=== PATIENT | female | born 1970 | race African-American/Black ===

== ENCOUNTER 2018-02-25 09:49 | Emergency (ER) | payer SELFPAY ==
--- NOTE | 2018-02-25 10:21 | ER Document Report ---
ED General - General Chief Complaint: Pelvic Problem Stated Complaint: URINARY ISSUE Time Seen by Provider: 02/25/18 10:09 Mode of Arrival: Ambulatory Information source: Patient Notes: 47-year-old female presents the emergency department with complaints of increased urgency, increased frequency, difficulty urinating. She also states that she feels like her bladder might be prolapsing. Patient states that symptoms have been present for the last year. She states that initially she felt a small bulge dropping out of her vagina. This is been increasing in size. Patient states that now as soon as she stands up she feels a large buldge in her vagina. If she crosses her feet when she stands it will keep the bladder up longer. Patient says that when it drops she's unable to urinate. She denies vaginal bleeding or abnormal vaginal discharge. Intermittent suprapubic abdominal pain. Patient has followed up with a urologist, Dr. Ardon. He checked her urine and said that he would refer her to Dr. Valentin who specializes in bladder prolapse. Patient has an appointment at the end of the month. I have greeted and performed a rapid initial assessment of this patient. A comprehensive ED assessment and evaluation of the patient, analysis of test results and completion of the medical decision making process will be conducted by additional ED providers. PHYSICAL EXAMINATION: GENERAL: Well-appearing, well-nourished and in no acute distress. HEAD: Atraumatic, normocephalic. EYES: Pupils equal round extraocular movements intact, conjunctiva are normal. ENT: Nares patent NECK: Normal range of motion LUNGS: No respiratory distress Musculoskeletal: Normal range of motion NEUROLOGICAL: Normal speech, normal gait. PSYCH: Normal mood, normal affect. SKIN: Warm, Dry, normal turgor, no rashes or lesions noted. TRAVEL OUTSIDE OF THE [place] IN LAST 30 DAYS: No - Related Data Allergies/Adverse Reactions: No Known Allergies Allergy (Verified 02/25/18 10:18) Past Medical History - Social History Smoking Status: Never Smoker Family History: Reviewed & Not Pertinent Physical Exam - Vital signs Vitals: Temp Pulse Resp BP Pulse Ox 97.6 F 64 18 124/70 100 02/25/18 10:01 02/25/18 10:01 02/25/18 10:01 02/25/18 10:01 02/25/18 10:01 Course - Vital Signs Vital signs: Temp Pulse Resp BP Pulse Ox 97.6 F 64 18 124/70 100 02/25/18 10:01 02/25/18 10:01 02/25/18 10:01 02/25/18 10:01 02/25/18 10:01 Discharge - Discharge Referrals: LOCALMD,NO [Primary Care Provider] - Follow up as needed
[2018-02-25 10:41] LABS: APPEARANCE,URINE CLEAR; BILIRUBIN,URINE NEGATIVE (NEGATIVE); COLOR,URINE STRAW; GLUCOSE, URINE NEGATIVE (NEGATIVE); KETONES,URINE NEGATIVE (NEGATIVE); LEUKOCYTE ESTERASE,URINE NEGATIVE (NEGATIVE); NITRITE,URINE NEGATIVE (NEGATIVE); PROTEIN,URINE NEGATIVE (NEGATIVE); URINE SPECIFIC GRAVITY 1.008; UROBILINOGEN,URINE NEGATIVE mg/dL (<2.0)
--- NOTE | 2018-02-25 10:41 | ER Document Report ---
ED General - General Chief Complaint: Pelvic Problem Stated Complaint: URINARY ISSUE Time Seen by Provider: 02/25/18 10:09 Mode of Arrival: Ambulatory Information source: Patient Notes: This is a 47-year-old female who has been having symptoms of prolapsed bladder on and off for the past year. Patient states she was having difficulty urinating in the setting of prolapse and came into the emergency room. The patient was recently evaluated by urologist and were burred to Dr. Angel Clancy of urology. Currently, she denies any nausea, vomiting, abdominal pain. TRAVEL OUTSIDE OF THE [place] IN LAST 30 DAYS: No - HPI Onset: Other - Symptoms over the last year Onset/Duration: Gradual Quality of pain: No pain Severity: None Pain Level: Denies Associated symptoms: None Exacerbated by: Denies Relieved by: Denies Similar symptoms previously: Yes Recently seen / treated by doctor: Yes - Related Data Allergies/Adverse Reactions: No Known Allergies Allergy (Verified 02/25/18 10:18) Past Medical History - General Information source: Patient - Social History Smoking Status: Never Smoker Cigarette use (# per day): No Chew tobacco use (# tins/day): No Frequency of alcohol use: None Drug Abuse: None Lives with: Family Family History: Reviewed & Not Pertinent Patient has suicidal ideation: No Patient has homicidal ideation: No - Past Medical History Cardiac Medical History: Reports: Hx Hypertension Renal/ Medical History: Denies: Hx Peritoneal Dialysis Surgical Hx: Negative Review of Systems - Review of Systems Constitutional: denies: Chills, Fever EENT: No symptoms reported Cardiovascular: No symptoms reported Respiratory: No symptoms reported Gastrointestinal: No symptoms reported Genitourinary: No symptoms reported Female Genitourinary: See HPI Musculoskeletal: No symptoms reported Skin: No symptoms reported Hematologic/Lymphatic: No symptoms reported Neurological/Psychological: No symptoms reported Physical Exam - Vital signs Vitals: Temp Pulse Resp BP Pulse Ox 97.6 F 64 18 124/70 100 02/25/18 10:01 02/25/18 10:01 02/25/18 10:01 02/25/18 10:01 02/25/18 10:01 Notes: Physical exam: GENERAL: The patient is alert and oriented x3, no acute distress HEAD: Atraumatic, normocephalic. EYES: Pupils equal round and reactive to light, extraocular movements intact, sclera anicteric, conjunctiva are normal. ENT: TMs normal, nares patent, oropharynx clear without exudates. Moist mucous membranes. NECK: Normal range of motion, supple without obvious mass or JVD. LUNGS: Breath sounds clear to auscultation bilaterally and equal. No wheezes rales or rhonchi. HEART: Regular rate and rhythm without murmurs, rubs or gallops. ABDOMEN: Soft, normoactive bowel sounds. No tenderness to palpation. No guarding, no rebound. No masses appreciated. Vaginal: External genitalia normal. No obvious prolapse. Cervix normal, no masses. No abnormal discharge. EXTREMITIES: Normal range of motion, no pitting or edema. No clubbing or cyanosis. NEUROLOGICAL: Cranial nerves II through XII grossly intact. Normal speech, moving all extremities. PSYCH: Normal mood, normal affect. SKIN: Warm, Dry, normal turgor, no rashes or lesions noted. Patient did not had any obvious prolapse on my exam. We did have her walk the halls and go to the bathroom and when she returned, repeat pelvic exam showed prolapsing cervix which was easily retracted back and to the pelvis. Tissues were normal and pink. Course - Re-evaluation Re-evalutation: 02/25/18 11:41 Given that the patient has an appointment with Dr. Angel Clancy on March 13, I did call and speak to him to make sure that this is within his scope of practice. He stated that often times he will refer the patient to a aquaculture program director if it appears that like warts prolapsing is all uterus. He is willing to see the patient on the . I have opted to call the aquaculture program director here. I will give her the phone number for the [facility] here and I have advised her that if the appointment [facility] is after March 13, to continue with the appointment with Dr. Clancy. If it turns out that the patient will be taken care of by the aquaculture program director, she could always cancel the appointment at that time. - Vital Signs Vital signs: Temp Pulse Resp BP Pulse Ox 97.9 F 56 L 14 110/67 100 02/25/18 12:31 02/25/18 12:31 02/25/18 12:31 02/25/18 12:31 02/25/18 12:31 Discharge - Discharge Clinical Impression: Prolapsed uterus Condition: Stable Disposition: HOME, SELF-CARE Additional Instructions: As we discussed, your urine test look normal. On exam, he did appear to be the cervix (uterus) that was prolapsing. Often times, the aquaculture program director will be the ones taking care of this. As we discussed, we will give you the number of the [facility] who is the gynecology service. It may be that the appointment is after March 13 in which case I would continue to see Dr. Angel Clancy. If the appointment with the aquaculture program director is before March 13, see what they recommend before canceling that appointment with Dr. Angel Clancy. Return to the emergency room for any pain, prolapse that does not seem to go back or any concerns or getting worse. Forms: Return to Work Referrals: JULIUS HARTMAN, DO [ACTIVE STAFF] - Follow up as needed (This is the number the [facility] (the aquaculture program director).)
[2018-02-25 11:51] LABS: T.VAGINALIS (WET MOUNT) NO TRICHOMONAS SEEN; YEAST (WET MOUNT) NO YEAST SEEN
[2018-02-25 11:52] LABS: EPITHELIALS (WET MOUNT) 3+ EPITHELIALS SEEN; WBCS (WET MOUNT) 1+ WBCS SEEN
[2018-02-25 12:32] VITALS: BP 110/67
[2018-02-25 13:22] LABS: CHLAM PCR NOT DETECTED (NOT DETECT); GON PCR NOT DETECTED (NOT DETECT)
== END 2018-02-25 12:31 | disposition home or self-care (01) ==
LOC: ER 09:49
DX: N81.4 Uterovaginal prolapse, unspecified (principal); I10 Essential (primary) hypertension
CPT/HCPCS: 81001; 87210; 87491; 87591; 99284

== ENCOUNTER 2018-05-29 06:50 | Day surgery (SDC) | payer BC ==
[2018-05-20 13:20] LABS: HEMATOCRIT 38.7 % (36.0-47.0); MEAN CORPUSCULAR HEMOGLOBIN 27.8 pg (27.0-33.4); MEAN CORPUSCULAR HGB CONC 33.5 g/dL (32.0-36.0); MEAN CORPUSCULAR VOLUME 83 fl (80-97); PLATELET COUNT 221 10^3/uL (150-450); RED BLOOD COUNT 4.67 10^6/uL (3.72-5.28); RED CELL DISTRIBUTION WIDTH 14.7 % (11.5-14.0); WHITE BLOOD COUNT 5.1 10^3/uL (4.0-10.5)
[2018-05-20 13:21] LABS: APPEARANCE,URINE CLEAR; BILIRUBIN,URINE NEGATIVE (NEGATIVE); COLOR,URINE STRAW; GLUCOSE, URINE NEGATIVE (NEGATIVE); KETONES,URINE NEGATIVE (NEGATIVE); LEUKOCYTE ESTERASE,URINE NEGATIVE (NEGATIVE); NITRITE,URINE NEGATIVE (NEGATIVE); PROTEIN,URINE NEGATIVE (NEGATIVE); URINE SPECIFIC GRAVITY 1.005; UROBILINOGEN,URINE NEGATIVE mg/dL (<2.0)
[2018-05-20 13:36] LABS: ALANINE AMINOTRANSFERASE 20 U/L (9-52); ALBUMIN 4.8 g/dL (3.5-5.0); ALKALINE PHOSPHATASE 53 U/L (38-126); ANION GAP 12 (5-19); ASPARTATE AMINO TRANSFERASE 23 U/L (14-36); BILIRUBIN,DIRECT 0.3 mg/dL (0.0-0.4); BILIRUBIN,TOTAL 1.2 mg/dL (0.2-1.3); BLOOD UREA NITROGEN 12 mg/dL (7-20); CALCIUM 9.9 mg/dL (8.4-10.2); CARBON DIOXIDE 24 mmol/L (22-30); CHLORIDE 104 mmol/L (98-107); GLUCOSE 92 mg/dL (75-110); POTASSIUM 4.1 mmol/L (3.6-5.0); SODIUM 140.3 mmol/L (137-145); TOTAL PROTEIN 7.9 g/dL (6.3-8.2)
[~2018-05-29 06:50] MED LIST: CEFAZOLIN SODIUM 2 GM in DEXTROSE 5%-WATER 100 ML IV PRN; LIDOCAINE 0.5% INJ-PF (5 MG/ML) 50 ML SDV SUBCUT PRN
[2018-05-29] MEDS ORDERED: METHYLENE BLUE 50 MG/10 ML AMPULE ONE (07:19)
[2018-05-29] MEDS ORDERED: VASOPRESSIN INJ 20 UNIT/1 ML VIAL ONE (08:51)
[2018-05-29] MEDS ORDERED: FENTANYL CITRATE INJ/PF 250 MCG/5 ML AMPULE ONE (09:00)
[2018-05-29] MEDS ORDERED: LIDOCAINE 2% INJ-PF (20 MG/ML) 10 ML AMPUL ONE (09:00)
[2018-05-29] MEDS ORDERED: PROMETHAZINE HCL INJ 25 MG/1 ML VIAL ONE (09:00)
[2018-05-29] MEDS ORDERED: ONDANSETRON HCL INJ/PF 4 MG/2 ML SDV ONE (09:01)
[2018-05-29] MEDS ORDERED: MIDAZOLAM 2 MG/2 ML INJ ONE (09:01)
[2018-05-29] MEDS ORDERED: HYDROMORPHONE HCL INJ/PF 2 MG/ML AMPULE ONE (09:01)
[2018-05-29] MEDS ORDERED: ACETAMINOPHEN 1,000 MG/100 ML RTUPB IV ONE (09:01)
[2018-05-29] MEDS ORDERED: PROPOFOL INJ 200 MG/20 ML VIAL IV ONE (09:01)
[2018-05-29] MEDS ORDERED: MORPHINE SULFATE 10 MG/ML INJ IV PRN (09:51)
[2018-05-29] MEDS ORDERED: MEPERIDINE HCL/PF INJ 25 MG/1 ML DISP.SYRIN IV PRN (09:51)
[2018-05-29] MEDS ORDERED: PROMETHAZINE HCL INJ 25 MG/1 ML VIAL IV PRN ×3 (09:51→12:06)
[2018-05-29] MEDS ORDERED: DIPHENHYDRAMINE HCL 50 MG/ML VIAL IV PRN (09:51)
[2018-05-29] MEDS ORDERED: FENTANYL CITRATE INJ/PF 100 MCG/2 ML AMPUL IV PRN ×3 (09:51)
[2018-05-29] MEDS ORDERED: NEOSTIGMINE METHYLSULFATE 10 MG/10 ML VIAL ONE (11:37)
[2018-05-29] MEDS ORDERED: DEXAMETHASONE SOD PHOSPHATE INJ 4 MG/1 ML VIAL ONE (11:37)
[2018-05-29] MEDS ORDERED: SUCCINYLCHOLINE CHLORIDE INJ 200 MG/10 ML VIAL ONE (11:37)
[2018-05-29] MEDS ORDERED: ROCURONIUM BROMIDE INJ 50 MG/5 ML VIAL IV ONE (11:37)
[2018-05-29] MEDS ORDERED: KETOROLAC TROMETHAMINE 60 MG/2 ML SDV ONE (11:37)
[2018-05-29] MEDS ORDERED: GLYCOPYRROLATE 1 MG/5 ML SYRINGE ONE (11:37)
[2018-05-29] MEDS ORDERED: SIMETHICONE 80 MG TAB.CHEW PO PRN (12:06)
[2018-05-29] MEDS ORDERED: ACETAMINOPHEN 325 MG TABLET PO PRN (12:06)
[2018-05-29] MEDS ORDERED: OXYCODONE-ACETAMINOPHEN 5-325 MG TABLET PO PRN ×2 (12:06)
[2018-05-29] MEDS ORDERED: HYDROMORPHONE HCL INJ/PF 2 MG/ML AMPULE IV PRN (12:06)
--- NOTE | 2018-05-29 12:23 | Operative Report ---
Operative Report DATE OF SURGERY: 05/29/18 PREOPERATIVE DIAGNOSIS: Uterine prolapse, grade 3 POSTOPERATIVE DIAGNOSIS: Same plus vaginal prolapse OPERATION: 1. Vaginal hysterectomy with bilateral salpingectomy. 2. Posterior colporrhaphy. 3. Sacral spinous ligament fixation. 4. Cystoscopy SURGEON: JULIUS SRIVASTAVA STRATEGIC ACCOUNT MANAGER: ROSAMARIA LU ANESTHESIA: GA TISSUE REMOVED OR ALTERED: Uterus, bilateral tubes and excess posterior vaginal mucosa COMPLICATIONS: None ESTIMATED BLOOD LOSS: 300 mL INTRAOPERATIVE FINDINGS: Uterus measures approximately 6 x 12 cm; 1 x 1 cm fibroid in the right fundal region; grade 3 uterine prolapse; vaginal prolapse PROCEDURE: Patient was taken to the operating room where general anesthesia was understood without difficulty. The patient was then prepared and draped in a normal sterile fashion in dorsal lithotomy position. Gregory catheter was then placed in the patient's bladder. A weighted speculum was then placed in the patient's vagina and it was immediately noted that there was grade 3 uterine prolapse. Anterior lip of the cervix was grasped with a single-tooth tenaculum. Next, the cervix was circumferentially incised with a Bovie and the bladder was dissected off the pubovesical cervical fascia anteriorly with an open Ray-Batool and the Metzenbaum scissors. The posterior cul-de-sac was then entered sharply without difficulty. At this point a Angela clamp was placed over the uterosacral ligaments on either side. They were then transected and suture ligated with 0 Vicryl. Hemostasis was noted. The cardinal ligaments were then clamped on both sides, transected and suture ligated in similar fashion. Attempt was made to enter anteriorly but the plane was not located just yet. The uterine arteries and the broad ligament were then serially clamped with Angela clamps, transected and suture-ligated on both sides. Excellent hemostasis was visualized. The anterior cul-de-sac was then entered sharply. A right angle was then placed into the space. Both cornua were then clamped with Angela clamps, transected and uterus was delivered. These pedicles were then suture-ligated with excellent hemostasis. The left tube and ovary were then located. The left tube was then grasped with a Durham and a Angela was placed around the tube, which was transected and suture-ligated. Hemostasis was noted. The same was done on the left side and hemostasis was also noted. The vaginal cuff angles were then closed in a [id number] stitches of 0 Vicryl and transfixed to the ipsilateral cardinal and uterosacral ligaments. The remainder of the vaginal cuff was then closed with 0 Vicryl in a running, locked fashion. Hemostasis was noted. Attention was then turned to the posterior colporrhaphy. Incision was made in the perineal body with Metzenbaum scissors. The tissue was then undermined in o rder to make a vertical incision in the posterior vaginal mucosa. The edges were then held with Allis clamps. The perirectal fascia was dissected off the posterior vaginal mucosa. The apex of the rectocele was then held with an Allis clamp. A finger was placed in the rectovaginal space, which was used to fix the ischial spine in preparation for the sacral spinous ligament fixation. The spine was then palpated directly and is on approximately 2 cm medial to the spine was selected for insertion of the Anchorsure. I inserted the device and placed the anchor. The polypropylene suture was then held with a hemostat for later use. Attention was then returned to the posterior repair. 2-0 Vicryl was used in interrupted fashion to pass to the margin of the levator angle from the apex down to the posterior fourchette. Sutures were held until the fourchette is reached. The Anchorsure was then loosely attached to the vaginal mucosa at the apex. Each interrupted suture was then tied. The Anchorsure was then cinched down to suspend the vaginal cuff. The excess vaginal mucosa was then trimmed. The vaginal mucosa was then closed in a running, locked fashion with 2-0 Vicryl. Hemostasis was noted. Perineal body was also repaired. Patient was then given methylene blue during the posterior colporrhaphy in preparation for the cystoscopy. The Gregory catheter was then removed and the cystoscope was then introduced into the urethra and bladder. After approximately 3 minutes, the methylene blue was seen extruding from the right and left utereral orifices. The cystoscope was then removed and Gregory catheter was replaced. Patient tolerated procedure well. Sponge, lap, needle and instrument counts are correct x2. Patient was given 2 g Ancef prior to the start of procedure. Leoncio khoi was taken to the recovery room in stable condition. Dr. Lu's assistance was essential to perform these procedures in a timely proficient manner.
[2018-05-29] MEDS: KETOROLAC TROMETHAMINE INJ/PF 30 MG/1 ML SDV IV SCH ×2 (13:44→21:17)
[2018-05-29] MEDS: DOCUSATE SODIUM 100 MG CAPSULE PO SCH (17:30)
[2018-05-29] MEDS: LACTATED RINGERS 1000 ML IV PRN ×2 (17:52→21:21)
[2018-05-30] MEDS: RINGERS SOLUTION,LACTATED 1,000 ML IV PRN ×2 (06:05→06:41)
[2018-05-30] MEDS: KETOROLAC TROMETHAMINE INJ/PF 30 MG/1 ML SDV IV SCH (06:41)
[2018-05-30 06:45] LABS: HEMATOCRIT 33.7 % (36.0-47.0); HEMOGLOBIN 11.1 g/dL (12.0-15.5); MEAN CORPUSCULAR HEMOGLOBIN 27.7 pg (27.0-33.4); MEAN CORPUSCULAR HGB CONC 33.1 g/dL (32.0-36.0); MEAN CORPUSCULAR VOLUME 84 fl (80-97); PLATELET COUNT 147 10^3/uL (150-450); RED BLOOD COUNT 4.02 10^6/uL (3.72-5.28); RED CELL DISTRIBUTION WIDTH 14.5 % (11.5-14.0); WHITE BLOOD COUNT 10.5 10^3/uL (4.0-10.5)
[2018-05-30] MEDS: DOCUSATE SODIUM 100 MG CAPSULE PO SCH (09:34)
--- NOTE | 2018-05-30 10:35 | PDOC DISCHARGE SUMMARY ---
General - Admit/Disc Date/PCP Admission Date/Primary Care Provider: May 29, 2017 Discharge Date: 05/30/18 - Discharge Diagnosis (1) Uterine prolapse Is this a current diagnosis for this admission?: Yes (2) Vaginal vault prolapse Is this a current diagnosis for this admission?: Yes (3) Rectocele Is this a current diagnosis for this admission?: Yes - Additional Information Discharge Diet: As Tolerated, Regular Discharge Activity: No Lifting Over 10 Pounds, Pelvic Rest, Slowly Increase Activity Prescriptions: Docusate Sodium [Colace 100 mg Capsule] 100 mg PO BID #30 capsule Ibuprofen [Motrin 800 mg Tablet] 800 mg PO Q8H PRN #40 tablet PRN Reason: Oxycodone HCl/Acetaminophen [Percocet 5-325 mg Tablet] 1 tab PO Q4HP PRN #30 tablet PRN Reason: Home Medications: Olmesartan/Hydrochlorothiazide [Olmesartan-Hctz 20-12.5 mg Tab] 1 each PO DAILY 05/17/18 Docusate Sodium [Colace 100 mg Capsule] 100 mg PO BID #30 capsule 05/30/18 Ibuprofen [Motrin 800 mg Tablet] 800 mg PO Q8H PRN #40 tablet 05/30/18 Oxycodone HCl/Acetaminophen [Percocet 5-325 mg Tablet] 1 tab PO Q4HP PRN #30 tablet 05/30/18 History of Present Illness Patient complains of: "My uterus is falling out" History of Present Illness: JUAN LUIS MENCHACA is a 47 year old presented to the office complaining of her uterus falling out. She stated that she has regular periods with normal flow. 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 Patient was scheduled for vaginal hysterectomy. The plan was to retain her ovaries secondary to her young age. Hospital Course Hospital Course: Hospital course was essentially uneventful and by postop day #1, the patient was ambulating voiding without difficulty.. Patient denies chest pain, shortness of breath, fever/chills or nausea/vomiting. Her immediate postop hemoglobin was 11, down from an admission hemoglobin of 13. Her oral medication is working well for her. Physical Exam - Physical Exam Vital Signs: Temp Pulse Resp BP Pulse Ox 99.3 F 55 L 16 108/64 100 05/30/18 07:57 05/30/18 07:57 05/30/18 07:57 05/30/18 07:57 05/30/18 07:57 Intake & Output 05/29/18 05/30/18 05/31/18 06:59 06:59 06:59 Intake Total 3410 Output Total 2200 Balance 1210 Weight 106.59 kg General appearance: PRESENT: no acute distress Respiratory exam: PRESENT: clear to auscultation donny Cardiovascular exam: PRESENT: RRR GI/Abdominal exam: PRESENT: normal bowel sounds, soft Extremities exam: ABSENT: calf tenderness, clubbing, full ROM, joint swelling, pedal edema, tenderness, +1 edema, +2 edema, other - Gynecological Exam Vagina: discharge - Scant serosanguineous discharge Result Laboratory Results: 05/30/18 06:38 05/29/18 07:38 05/30/18 06:38 WBC 10.5 RBC 4.02 Hgb 11.1 L Hct 33.7 L MCV 84 MCH 27.7 MCHC 33.1 RDW 14.5 H Plt Count 147 L Plan Discharge Plan: Plan: 1. Discharge home today 2. Follow-up in the office in 2 weeks for postoperative examination or sooner if needed 3. Rx for a stool softener, Percocet and ibuprofen given Time Spent: Less than 30 Minutes
[2018-05-30] MEDS ORDERED: IBUPROFEN 800 MG TABLET PO SCH (12:00)
[2018-05-30 12:37] VITALS: BP 122/77
== END 2018-05-30 13:18 | disposition home or self-care (01) ==
LOC: OROUT 06:50 → 2S 13:21 → OROUT 05-30 13:18
PROVIDERS: ATTEND Obstetrics & Gynecology
DX: N81.3 Complete uterovaginal prolapse (principal); N81.6 Rectocele; R23.4 Changes in skin texture; N80.0 Endometriosis of uterus; D25.9 Leiomyoma of uterus, unspecified; N83.8 Other noninflammatory disorders of ovary, fallopian tube and broad ligament; I10 Essential (primary) hypertension; Z79.899 Other long term (current) drug therapy; Z00.00 Encounter for general adult medical examination without abnormal findings
CPT/HCPCS: 86900; 86901; 36415 ×3; 86850; 82962; 84132; 85027 ×2; 81025; 80053; 81001; 88307 ×2; 94799; 57250; 58262; J2250; J0690; J3490 ×4; J1100; J1885 ×3; J3010; J2550; J0330; J2405; J7120 ×2; J2704; J0131; Q9968; 944; J1170

== ENCOUNTER 2020-03-07 10:34 | Emergency (ER) | payer BC ==
[2020-03-07] MEDS ORDERED: HYDROCODONE/ACETAMINOPHEN 5-325 MG TABLET PO ONE (11:45)
--- NOTE | 2020-03-07 11:46 | ER Document Report ---
ED Medical Screen (RME) - General Chief Complaint: Leg Pain Stated Complaint: LEFT LEG PAIN Time Seen by Provider: 03/07/20 11:41 Notes: Patient presents complaining of low back pain for the past 7 months. Patient denies any injury. Patient also complains of recent muscle cramps to bilateral lower extremities that wake her up at night. Patient denies any recent injury. Patient denies any fever. Patient denies any urinary retention or incontinence. I have greeted and performed a rapid initial assessment of this patient. A comprehensive ED assessment and evaluation of the patient, analysis of test results and completion of the medical decision making process will be conducted by additional ED providers. TRAVEL OUTSIDE OF THE [place] IN LAST 30 DAYS: No - Related Data Allergies/Adverse Reactions: lisinopril Adverse Reaction (Verified 03/07/20 11:39) Past Medical History - Social History Chew tobacco use (# tins/day): No Frequency of alcohol use: None Drug Abuse: None - Past Medical History Cardiac Medical History: Reports: Hx Hypertension Denies: Hx Coronary Artery Disease, Hx Heart Attack Pulmonary Medical History: Denies: Hx Asthma, Hx Bronchitis, Hx COPD, Hx Pneumonia Neurological Medical History: Denies: Hx Cerebrovascular Accident, Hx Seizures Renal/ Medical History: Denies: Hx Peritoneal Dialysis Musculoskeltal Medical History: Denies Hx Arthritis - Immunizations Hx Diphtheria, Pertussis, Tetanus Vaccination: Yes Physical Exam - Vital signs Vitals: Temp Pulse Resp BP Pulse Ox 98.2 F 75 16 121/68 100 03/07/20 10:42 03/07/20 10:42 03/07/20 10:42 03/07/20 10:42 03/07/20 10:42 - Back Back: Vertebra tenderness - Lumbar tenderness Course - Vital Signs Vital signs: Temp Pulse Resp BP Pulse Ox 98.2 F 75 16 121/68 100 03/07/20 10:42 03/07/20 10:42 03/07/20 10:42 03/07/20 10:42 03/07/20 10:42
[2020-03-07 12:12] LABS: ABSOLUTE BASOPHILS # (AUTO) 0.1 10^3/uL (0.0-0.2); ABSOLUTE EOSINOPHILS # (AUTO) 0.2 10^3/uL (0.0-0.6); ABSOLUTE LYMPHOCYTES (AUTO) 2.1 10^3/uL (0.5-4.7); ABSOLUTE MONOCYTES (AUTO) 0.5 10^3/uL (0.1-1.4); ABSOLUTE NEUT (AUTO) 3.4 10^3/uL (1.7-8.2); BASOPHILS % (AUTO) 0.9 % (0-2); EOSINOPHILS % (AUTO) 3.6 % (0-6); HEMATOCRIT 36.7 % (36.0-47.0); HEMOGLOBIN 12.6 g/dL (12.0-15.5); MEAN CORPUSCULAR HEMOGLOBIN 28.8 pg (27.0-33.4); MEAN CORPUSCULAR HGB CONC 34.4 g/dL (32.0-36.0); MEAN CORPUSCULAR VOLUME 84 fl (80-97); MONOCYTES % (AUTO) 8.3 % (3-13); PLATELET COUNT 206 10^3/uL (150-450); RED BLOOD COUNT 4.39 10^6/uL (3.72-5.28); RED CELL DISTRIBUTION WIDTH 14.3 % (11.5-14.0); SEGMENTED NEUTROPHILS % (AUTO) 53.2 % (42-78); TOTAL CELLS COUNTED % (AUTO) 100 %; WHITE BLOOD COUNT 6.3 10^3/uL (4.0-10.5)
[2020-03-07 12:32] LABS: ANION GAP 9 (5-19); BLOOD UREA NITROGEN 14 mg/dL (7-20); CALCIUM 9.7 mg/dL (8.4-10.2); CARBON DIOXIDE 27 mmol/L (22-30); CHLORIDE 103 mmol/L (98-107); CREATINE KINASE 295 U/L (30-135); GLUCOSE 97 mg/dL (75-110); POTASSIUM 4.7 mmol/L (3.6-5.0)
--- NOTE | 2020-03-07 12:46 | RADIOLOGY REPORT (SQ) ---
EXAM DESCRIPTION: L SPINE WHOLE IMAGES COMPLETED DATE/TIME: 03/07/2020 12:25 pm REASON FOR STUDY: low back pain COMPARISON: None. NUMBER OF VIEWS: Five views including obliques. TECHNIQUE: AP, lateral, oblique, and sacral radiographic images acquired of the lumbar spine. LIMITATIONS: None. FINDINGS: MINERALIZATION: Normal. SEGMENTATION: Normal. No transitional anatomy. ALIGNMENT: Normal. VERTEBRAE: Maintained height. No fracture or worrisome bone lesion. DISCS: Preserved height. No significant osteophytes or end plate irregularity. POSTERIOR ELEMENTS: Pedicles and facets are intact. No pars defect or posterior arch defects. Mild lower lumbar facet sclerosis. HARDWARE: None in the spine. PARASPINAL SOFT TISSUES: Normal. PELVIS: Intact as visualized. No fractures or worrisome bone lesions. SI joints intact. OTHER: No other significant finding. IMPRESSION: Mild facet degenerative changes in the lower lumbar spine. Otherwise, unremarkable radi ographs of the lumbar spine. TECHNICAL DOCUMENTATION: JOB ID: [id number] [employer]- All Rights Reserved Reading location - IP/workstation name: [email or web address]
--- NOTE | 2020-03-07 15:27 | ER Document Report ---
ED General - General Chief Complaint: Leg Pain Stated Complaint: LEFT LEG PAIN Time Seen by Provider: 03/07/20 11:41 Notes: Patient is a 49-year-old female with a history of hypertension who presents the emergency department chief complaint of left leg, lower back and hip pain that began around June or July of this year. She states she had a complete hysterectomy at that time. She states ever since then she has had some pain travels down the left leg. She states the pain seems to originate in the left posterior lower back radiates down the left buttock behind the left leg to mid lower leg. She states she often has a sensation of pulling or tightness behind the knee and just proximal. States that she often gets charley horses in the same area. States she is tried BC powders and Tylenol [id number] without any significant improvement. She denies any traumatic injury or blunt trauma. Denies any urinary or bowel incontinence or retention. Denies any saddle anesthesia. Denies any reports of numbness tingling or weakness. No abdominal pain. No fever TRAVEL OUTSIDE OF THE [place] IN LAST 30 DAYS: No - Related Data Allergies/Adverse Reactions: lisinopril Adverse Reaction (Verified 03/07/20 11:39) Past Medical History - Social History Smoking Status: Never Smoker Chew tobacco use (# tins/day): No Frequency of alcohol use: None Drug Abuse: None Family History: Reviewed & Not Pertinent - Past Medical History Cardiac Medical History: Reports: Hx Hypertension Denies: Hx Coronary Artery Disease, Hx Heart Attack Pulmonary Medical History: Denies: Hx Asthma, Hx Bronchitis, Hx COPD, Hx Pneumonia Neurological Medical History: Denies: Hx Cerebrovascular Accident, Hx Seizures Renal/ Medical History: Denies: Hx Peritoneal Dialysis Musculoskeletal Medical History: Denies Hx Arthritis - Immunizations Hx Diphtheria, Pertussis, Tetanus Vaccination: Yes Review of Systems - Review of Systems Constitutional: denies: Malaise EENT: denies: Nose discharge Cardiovascular: denies: Dyspnea Respiratory: denies: Stridor Gastrointestinal: denies: Constipation, Blood in vomit Genitourinary: denies: Hematuria Female Genitourinary: denies: Vaginal discharge Musculoskeletal: denies: Deformity Skin: denies: Change in hair/nails Hematologic/Lymphatic: denies: Easy bleeding Neurological/Psychological: denies: Lost consciousness Physical Exam - Vital signs Vitals: Temp Pulse Resp BP Pulse Ox 98.2 F 75 16 121/68 100 03/07/20 10:42 03/07/20 10:42 03/07/20 10:42 03/07/20 10:42 03/07/20 10:42 - General General appearance: Appears well, Alert In distress: None - HEENT Head: Normocephalic, Atraumatic Eyes: Normal Conjunctiva: Normal Extraocular movements intact: Yes Pupils: PERRL Mucous membranes: Normal, Moist Neck: Normal, Supple - Respiratory Respiratory status: No respiratory distress Chest status: Nontender Breath sounds: Normal Chest palpation: Normal - Cardiovascular Rhythm: Regular Heart sounds: Normal auscultation - Back Back: Tender - Tender palpation mid lower lumbar and left paralumbar musculature Notes: Patient able to elevate great toes bilaterally. 2+ DP/PT bilaterally. Lower extremity strength 5 out of 5 bilaterally. Some tenderness appreciated with palpation to the left proximal calf posteriorly and left distal hamstrings. No obvious swelling. Gait slightly limited by pain. Negative straight leg raise. Full passive range of motion of the left hip. Nontender left hip. Full passive range of motion of the left knee, nontender left knee. - Extremities General lower extremity: Other - Some slight tenderness to palpation of the proximal calf - Neurological Neuro grossly intact: Yes Cognition: Normal Orientation: AAOx4 - Psychological Associated symptoms: Normal affect, Normal mood - Skin Skin Temperature: Warm Skin Moisture: Dry Skin Color: Normal Course - Re-evaluation Re-evalutation: 03/07/20 17:58 DVT study negative. Patient's history and physical consistent with the findings on x-ray of facet arthropathy with radicular pain. Patient was given NSAIDs and muscle relaxers. Will refer to neurosurgery. Discussed with her the importance of outpatient follow-up and advised that she return here or any ER immediately with any new, persistent or worsening symptoms. She verbalized understood and agreed. - Vital Signs Vital signs: Temp Pulse Resp BP Pulse Ox 98.0 F 70 16 117/66 100 03/07/20 14:37 03/07/20 14:37 03/07/20 14:37 03/07/20 14:37 03/07/20 14:37 - Laboratory Result Diagrams: 03/07/20 12:00 03/07/20 12:00 Laboratory results interpreted by me: 03/07/20 03/07/20 12:00 12:00 RDW 14.3 H Est GFR (MDRD) Non-Af 57 L Creatine Kinase 295 H Discharge - Discharge Clinical Impression: Lumbar radiculopathy, Facet arthropathy Condition: Stable Disposition: HOME, SELF-CARE Instructions: Radiculopathy ([facility]) Additional Instructions: Follow-up with your regular doctor in 2 to 3 days for reevaluation. Return here or any ER immediately with any new, persistent or worsening symptoms. Prescriptions: Naproxen 500 mg PO BID PRN #20 tablet PRN Reason: Methocarbamol [Robaxin 750 mg Tablet] 750 mg PO Q6 #40 tablet Referrals: MANOLO PERSAUD MD [[facility]AFF] - Follow up as needed
--- NOTE | 2020-03-07 18:33 | RADIOLOGY REPORT (SQ) ---
EXAM DESCRIPTION: VENOUS UNILATERAL LOWER IMAGES COMPLETED DATE/TIME: 03/07/2020 6:10 pm REASON FOR STUDY: leftleg pain s/p surgery COMPARISON: None. TECHNIQUE: Dynamic and static barrera scale and color images acquired of the left leg venous system. Se lected spectral images acquired with additional compression and augmentation maneuvers. The contralat eral common femoral vein and saphenofemoral junction were also imaged. Images stored on PACS. LIMITATIONS: None. FINDINGS: COMMON FEMORAL: Normal phasicity, compression and augmentation. No visualized echogenic ma terial on barrera scale. No defects on color images. FEMORAL: Normal compression and augmentation. No visualized echogenic material on barrera scale. No defe cts on color images. POPLITEAL: Normal compression, augmentation. No visualized echogenic material on barrera scale. No defec ts on color images. CALF VESSELS: Normal compression, augmentation. No visualized echogenic material on barrera scale. No de fects on color images. GSV and SSV: Normal compression, augmentation. No visualized echogenic material on barrera scale. No def ects on color images. ANY DEEP VENOUS INSUFFICIENCY: Not evaluated. ANY EVIDENCE OF POPLITEAL CYST: No. OTHER: No other significant finding. CONTRALATERAL COMMON FEMORAL VEIN AND SAPHENOFEMORAL JUNCTION: Normal phasicity, compression and augmentation. No visualized echogenic material on barrera scale. No de fects on color images. IMPRESSION: NO EVIDENCE DVT OR SVT IN THE LEFT LEG. TECHNICAL DOCUMENTATION: JOB ID: [id number] [id number]- All Rights Reserved Reading location - IP/workstation name: [email or web address]
[2020-03-07 18:55] VITALS: BP 123/73
== END 2020-03-07 18:53 | disposition home or self-care (01) ==
LOC: ER 10:34
DX: M47.26 Other spondylosis with radiculopathy, lumbar region (principal); I10 Essential (primary) hypertension
CPT/HCPCS: 36415; 72110; 80048; 82550; 85025; 93971; 99285